=== PATIENT | male | born 1950 | race African-American/Black ===

== ENCOUNTER 2023-01-09 09:45 | Inpatient (IN) | payer OTHER ==
[2023-01-09] MEDS ORDERED: FLU VACC QS2023(65UP)/MF59C/PF 60 MCG/0.5 ML SYRINGE IM ONE (16:15)
[2023-01-09] MEDS ORDERED: Senokot S 8.6-50 MG TAB PO PRN (16:32)
[2023-01-09] MEDS ORDERED: Acetaminophen 325 MG TAB PO PRN (16:32)
[2023-01-09] MEDS ORDERED: Bisacodyl 5 MG TAB PO PRN (16:32)
[2023-01-09] MEDS ORDERED: Ondansetron ODT 4 MG TAB SL PRN (16:32)
[2023-01-09] MEDS ORDERED: Glucagon 1 MG/ML KIT IM PRN (17:05)
[2023-01-09] MEDS ORDERED: Dextrose 50% Abboject 50 ML SYRINGE SLOW IVP PRN (17:05)
[2023-01-09] MEDS ORDERED: HumaLOG 300 UNITS/3 ML VIAL SC PRN ×2 (17:05)
[2023-01-09] MEDS ORDERED: cloNIDine 0.1 MG TAB PO PRN (17:18)
[2023-01-09] MEDS: QUEtiapine 25 MG TAB PO SCH (20:27)
[2023-01-09] MEDS: metFORMIN 500 MG TAB PO SCH (20:27)
[2023-01-09] MEDS: Famotidine 20 MG TAB PO SCH (20:27)
[2023-01-09] MEDS: Donepezil HCl 10 MG TAB PO SCH (20:46)
[2023-01-09] MEDS ORDERED: metFORMIN XR 500 MG ER.TAB PO SCH (21:00)
[2023-01-09] MEDS ORDERED: Apixaban 5 MG TAB PO SCH ×2 (21:00)
[2023-01-10] MEDS: Apixaban 5 MG TAB PO SCH ×2 (09:41→21:03)
[2023-01-10] MEDS: QUEtiapine 25 MG TAB PO SCH ×2 (09:42→21:02)
[2023-01-10] MEDS: Famotidine 20 MG TAB PO SCH ×2 (09:42→21:03)
[2023-01-10] MEDS: Lisinopril 10 MG TAB PO SCH (09:42)
[2023-01-10] MEDS: Empagliflozin 10 MG TAB PO SCH (09:42)
[2023-01-10] MEDS: Amlodipine 5 MG TAB PO SCH (09:43)
[2023-01-10] MEDS: metFORMIN 500 MG TAB PO SCH ×2 (09:43→21:03)
[2023-01-10 09:46] LABS: #Basophils 0.1 thou/uL (0.0-0.2); #Eosinphils 0.3 thou/uL (0.0-0.7); #Lymphocytes 2.1 thou/uL (1.20-3.40); #Monocytes 0.4 thou/uL (0.11-0.59); #Neutrophils 5.2 thou/uL (1.40-6.50); %Basophils 1.4 % (0.0-1.0); %Eosinophils 3.1 % (0.0-10.0); %Monocytes 5.3 % (0.0-10.0); %Neutrophils 64.1 % (42.0-75.0); Hematocrit 57.4 % (42.0-52.0); Hemoglobin 18.7 g/dL (14.0-18.0); Mean Corpuscular HGB CONC 32.6 g/dL (32.0-36.0); Mean Corpuscular Hemoglobin 27.6 pg (27.0-31.0); Mean Corpuscular Volume 84.8 fl (78.0-98.0); Mean Platelet Volume 7.4 fL (7.4-10.4); Platelet Count 302 10x3/uL (130-400); RBC Distribution Width 12.7 % (11.5-14.5); Red Blood Cell (RBC) Count 6.77 mill/uL (4.70-6.10); White Blood Cell (WBC) Count 8.2 10x3/uL (4.8-10.8)
[2023-01-10] MEDS: Atorvastatin Calcium 40 MG TAB PO SCH (09:50)
[2023-01-10 10:01] LABS: ALT (SGPT) 27 U/L (8-55); AST (SGOT) 18 U/L (5-34); Albumin 4.3 g/dL (3.4-4.8); Alkaline Phosphatase 50 U/L (40-110); Anion Gap 16 mmol/L (10-20); BUN (Urea Nitrogen) 15 mg/dL (8.4-25.7); Bilirubin, Total 0.6 mg/dL (0.2-1.2); Calc. Creatinine Clearance 63 mL/min (70-130); Calcium 10.5 mg/dL (7.8-10.44); Carbon Dioxide 23 mmol/L (23-31); Chloride 106 mmol/L (98-107); Estimated GFR 75; Globulin 4.1 g/dL (2.4-3.5); Glucose 102 mg/dL (83-110); Protein, Total 8.4 g/dL (5.8-8.1); Sodium 140 mmol/L (136-145)
[2023-01-10] MEDS: Donepezil HCl 10 MG TAB PO SCH (21:03)
[2023-01-11] MEDS: Empagliflozin 10 MG TAB PO SCH (08:39)
[2023-01-11] MEDS: Famotidine 20 MG TAB PO SCH ×2 (08:40→21:08)
[2023-01-11] MEDS: Apixaban 5 MG TAB PO SCH ×2 (08:40→21:08)
[2023-01-11] MEDS: metFORMIN 500 MG TAB PO SCH ×2 (08:40→21:08)
[2023-01-11] MEDS: Lisinopril 10 MG TAB PO SCH (08:41)
[2023-01-11] MEDS: Amlodipine 5 MG TAB PO SCH (08:41)
[2023-01-11] MEDS: QUEtiapine 25 MG TAB PO SCH ×2 (08:41→21:08)
[2023-01-11] MEDS: Atorvastatin Calcium 40 MG TAB PO SCH (08:42)
[2023-01-11] MEDS: Donepezil HCl 10 MG TAB PO SCH (21:09)
[2023-01-12 06:36] LABS: ALT (SGPT) 21 U/L (8-55); AST (SGOT) 13 U/L (5-34); Albumin 4.1 g/dL (3.4-4.8); Alkaline Phosphatase 48 U/L (40-110); Anion Gap 17 mmol/L (10-20); BUN (Urea Nitrogen) 27 mg/dL (8.4-25.7); Bilirubin, Total 0.6 mg/dL (0.2-1.2); Calc. Creatinine Clearance 55 mL/min (70-130); Calcium 10.3 mg/dL (7.8-10.44); Carbon Dioxide 23 mmol/L (23-31); Chloride 104 mmol/L (98-107); Estimated GFR 63; Globulin 3.7 g/dL (2.4-3.5); Glucose 99 mg/dL (83-110); Potassium 4.6 mmol/L (3.5-5.1); Protein, Total 7.8 g/dL (5.8-8.1); Sodium 139 mmol/L (136-145)
[2023-01-12] MEDS: Lisinopril 10 MG TAB PO SCH ×2 (08:09→11:02)
[2023-01-12] MEDS: Apixaban 5 MG TAB PO SCH ×2 (08:09→19:44)
[2023-01-12] MEDS: metFORMIN 500 MG TAB PO SCH ×2 (08:09→19:44)
[2023-01-12] MEDS: Atorvastatin Calcium 40 MG TAB PO SCH (08:09)
[2023-01-12] MEDS: QUEtiapine 25 MG TAB PO SCH ×2 (08:10→19:44)
[2023-01-12] MEDS: Famotidine 20 MG TAB PO SCH ×2 (08:10→19:44)
[2023-01-12] MEDS: Empagliflozin 10 MG TAB PO SCH (08:10)
[2023-01-12] MEDS ORDERED: Apixaban 5 MG TAB PO SCH (09:00)
[2023-01-12] MEDS: Amlodipine 5 MG TAB PO SCH (11:02)
[2023-01-12] MEDS: Donepezil HCl 10 MG TAB PO SCH (19:44)
[2023-01-13] MEDS: Lisinopril 10 MG TAB PO SCH (09:57)
[2023-01-13] MEDS: Apixaban 5 MG TAB PO SCH ×2 (09:58→20:15)
[2023-01-13] MEDS: Famotidine 20 MG TAB PO SCH ×2 (09:59→20:16)
[2023-01-13] MEDS: Empagliflozin 10 MG TAB PO SCH (09:59)
[2023-01-13] MEDS: metFORMIN 500 MG TAB PO SCH ×2 (09:59→20:15)
[2023-01-13] MEDS: QUEtiapine 25 MG TAB PO SCH ×2 (09:59→20:16)
[2023-01-13] MEDS: Amlodipine 5 MG TAB PO SCH (10:00)
[2023-01-13] MEDS: Atorvastatin Calcium 40 MG TAB PO SCH (10:00)
[2023-01-13] MEDS: Donepezil HCl 10 MG TAB PO SCH (20:15)
[2023-01-14] MEDS: Empagliflozin 10 MG TAB PO SCH (08:35)
[2023-01-14] MEDS: Apixaban 5 MG TAB PO SCH ×2 (08:35→20:30)
[2023-01-14] MEDS: Atorvastatin Calcium 40 MG TAB PO SCH (08:36)
[2023-01-14] MEDS: metFORMIN 500 MG TAB PO SCH ×2 (08:36→20:29)
[2023-01-14] MEDS: Lisinopril 10 MG TAB PO SCH (08:37)
[2023-01-14] MEDS: QUEtiapine 25 MG TAB PO SCH ×2 (08:37→20:29)
[2023-01-14] MEDS: Famotidine 20 MG TAB PO SCH ×2 (08:37→20:29)
[2023-01-14] MEDS: Amlodipine 5 MG TAB PO SCH (08:38)
[2023-01-14] MEDS: Donepezil HCl 10 MG TAB PO SCH (20:30)
[2023-01-15] MEDS: metFORMIN 500 MG TAB PO SCH ×2 (08:23→20:27)
[2023-01-15] MEDS: Famotidine 20 MG TAB PO SCH ×2 (08:24→20:27)
[2023-01-15] MEDS: Atorvastatin Calcium 40 MG TAB PO SCH (08:24)
[2023-01-15] MEDS: Empagliflozin 10 MG TAB PO SCH (08:24)
[2023-01-15] MEDS: Lisinopril 10 MG TAB PO SCH (08:24)
[2023-01-15] MEDS: Apixaban 5 MG TAB PO SCH ×2 (08:24→20:27)
[2023-01-15] MEDS: QUEtiapine 25 MG TAB PO SCH ×2 (08:25→20:27)
[2023-01-15] MEDS: Amlodipine 5 MG TAB PO SCH (08:25)
[2023-01-15] MEDS: Donepezil HCl 10 MG TAB PO SCH (20:27)
[2023-01-16] MEDS: metFORMIN 500 MG TAB PO SCH ×2 (09:09→20:42)
[2023-01-16] MEDS: Famotidine 20 MG TAB PO SCH ×2 (09:09→20:42)
[2023-01-16] MEDS: Atorvastatin Calcium 40 MG TAB PO SCH (09:10)
[2023-01-16] MEDS: Empagliflozin 10 MG TAB PO SCH (09:10)
[2023-01-16] MEDS: Lisinopril 10 MG TAB PO SCH (09:10)
[2023-01-16] MEDS: Apixaban 5 MG TAB PO SCH ×2 (09:10→20:42)
[2023-01-16] MEDS: QUEtiapine 25 MG TAB PO SCH (09:10)
[2023-01-16] MEDS: Amlodipine 5 MG TAB PO SCH (09:11)
[2023-01-16] MEDS: Donepezil HCl 10 MG TAB PO SCH (20:41)
[2023-01-16] MEDS ORDERED: QUEtiapine 25 MG TAB PO SCH (21:00)
[2023-01-16] MEDS: hydrOXYzine 25 MG TAB PO PRN (22:10)
[2023-01-17 06:15] LABS: Anion Gap 18 mmol/L (10-20); BUN (Urea Nitrogen) 30 mg/dL (8.4-25.7); Calc. Creatinine Clearance 65 mL/min (70-130); Calcium 9.7 mg/dL (7.8-10.44); Carbon Dioxide 20 mmol/L (23-31); Chloride 104 mmol/L (98-107); Estimated GFR 82; Glucose 84 mg/dL (83-110); Sodium 137 mmol/L (136-145)
[2023-01-17 06:23] LABS: #Basophils 0.2 thou/uL (0.0-0.2); #Eosinphils 0.2 thou/uL (0.0-0.7); #Lymphocytes 3.7 thou/uL (1.20-3.40); #Monocytes 0.6 thou/uL (0.11-0.59); #Neutrophils 3.6 thou/uL (1.40-6.50); %Basophils 2.1 % (0.0-1.0); %Eosinophils 2.5 % (0.0-10.0); %Lymphocytes 44.6 % (21.0-51.0); %Monocytes 6.9 % (0.0-10.0); %Neutrophils 43.9 % (42.0-75.0); Hematocrit 49.6 % (42.0-52.0); Hemoglobin 16.4 g/dL (14.0-18.0); Mean Corpuscular Hemoglobin 27.9 pg (27.0-31.0); Mean Corpuscular Volume 84.4 fl (78.0-98.0); Platelet Count 196 10x3/uL (130-400); RBC Distribution Width 12.7 % (11.5-14.5); Red Blood Cell (RBC) Count 5.87 mill/uL (4.70-6.10); White Blood Cell (WBC) Count 8.2 10x3/uL (4.8-10.8)
[2023-01-17 06:29] LABS: Potassium 5.4 mmol/L (3.5-5.1)
[2023-01-17] MEDS ORDERED: QUEtiapine 25 MG TAB PO SCH (09:00)
[2023-01-17] MEDS: Atorvastatin Calcium 40 MG TAB PO SCH (09:25)
[2023-01-17] MEDS: Empagliflozin 10 MG TAB PO SCH (09:25)
[2023-01-17] MEDS: metFORMIN 500 MG TAB PO SCH ×2 (09:25→20:09)
[2023-01-17] MEDS: Famotidine 20 MG TAB PO SCH ×2 (09:27→20:10)
[2023-01-17] MEDS: Apixaban 5 MG TAB PO SCH ×2 (09:28→20:09)
[2023-01-17] MEDS: Lisinopril 10 MG TAB PO SCH (09:32)
[2023-01-17] MEDS: Amlodipine 5 MG TAB PO SCH (09:33)
[2023-01-17 09:39] VITALS: BMI 21.6
[2023-01-17] MEDS: QUEtiapine 25 MG TAB PO SCH (20:09)
[2023-01-17] MEDS: Donepezil HCl 10 MG TAB PO SCH (20:10)
[2023-01-17] MEDS: hydrOXYzine 25 MG TAB PO PRN (22:02)
[2023-01-18 06:17] LABS: Anion Gap 14 mmol/L (10-20); BUN (Urea Nitrogen) 26 mg/dL (8.4-25.7); Calc. Creatinine Clearance 65 mL/min (70-130); Calcium 9.8 mg/dL (7.8-10.44); Carbon Dioxide 24 mmol/L (23-31); Chloride 104 mmol/L (98-107); Estimated GFR 79; Glucose 79 mg/dL (83-110); Potassium 4.1 mmol/L (3.5-5.1); Sodium 138 mmol/L (136-145)
[2023-01-18] MEDS: QUEtiapine 25 MG TAB PO SCH ×2 (09:23→20:43)
[2023-01-18] MEDS: Empagliflozin 10 MG TAB PO SCH (09:24)
[2023-01-18] MEDS: metFORMIN 500 MG TAB PO SCH ×2 (09:24→20:42)
[2023-01-18] MEDS: Atorvastatin Calcium 40 MG TAB PO SCH (09:26)
[2023-01-18] MEDS: Apixaban 5 MG TAB PO SCH ×2 (09:26→20:43)
[2023-01-18] MEDS: Famotidine 20 MG TAB PO SCH ×2 (09:26→20:43)
[2023-01-18] MEDS: Amlodipine 5 MG TAB PO SCH (09:27)
[2023-01-18] MEDS: Lisinopril 10 MG TAB PO SCH (09:27)
[2023-01-18] MEDS: hydrOXYzine 25 MG TAB PO PRN (15:47)
[2023-01-18] MEDS: Donepezil HCl 10 MG TAB PO SCH (20:43)
[2023-01-19] MEDS: Atorvastatin Calcium 40 MG TAB PO SCH (08:10)
[2023-01-19] MEDS: Famotidine 20 MG TAB PO SCH ×2 (08:11→19:36)
[2023-01-19] MEDS: Apixaban 5 MG TAB PO SCH ×2 (08:11→19:35)
[2023-01-19] MEDS: metFORMIN 500 MG TAB PO SCH ×2 (08:11→19:35)
[2023-01-19] MEDS: Empagliflozin 10 MG TAB PO SCH (08:12)
[2023-01-19] MEDS: QUEtiapine 25 MG TAB PO SCH ×2 (08:12→19:34)
[2023-01-19] MEDS: Lisinopril 10 MG TAB PO SCH (08:13)
[2023-01-19] MEDS: Amlodipine 5 MG TAB PO SCH (08:14)
[2023-01-19] MEDS: hydrOXYzine 25 MG TAB PO PRN (19:35)
[2023-01-19] MEDS: Donepezil HCl 10 MG TAB PO SCH (19:36)
[2023-01-20] MEDS: QUEtiapine 25 MG TAB PO SCH (08:14)
[2023-01-20] MEDS: Famotidine 20 MG TAB PO SCH (08:14)
[2023-01-20] MEDS: Amlodipine 5 MG TAB PO SCH (08:15)
[2023-01-20] MEDS: Apixaban 5 MG TAB PO SCH (08:15)
[2023-01-20] MEDS: Atorvastatin Calcium 40 MG TAB PO SCH (08:15)
[2023-01-20] MEDS: Empagliflozin 10 MG TAB PO SCH (08:15)
[2023-01-20] MEDS: metFORMIN 500 MG TAB PO SCH (08:19)
[2023-01-20] MEDS: Lisinopril 10 MG TAB PO SCH (08:20)
[2023-01-20 11:26] VITALS: BP 122/75; TEMP 97.4
== END 2023-01-20 12:50 | disposition home or self-care (01) | DRG 948 ==
LOC: NAV ACUTE 14:44
PROVIDERS: ADMIT Family Medicine; ATTEND Family Medicine
DX: R53.81 Other malaise (principal); I69.352 Hemiplegia and hemiparesis following cerebral infarction affecting left dominant side; E11.9 Type 2 diabetes mellitus without complications; E78.5 Hyperlipidemia, unspecified; I10 Essential (primary) hypertension; R53.1 Weakness; G30.9 Alzheimer's disease, unspecified; F02.80 Dementia in other diseases classified elsewhere, unspecified severity, without behavioral disturbance, psychotic disturbance, mood disturbance, and anxiety; Z79.899 Other long term (current) drug therapy
CPT/HCPCS: 36415; 36416; 80048; 80053; 85025; 90471; 90694; G0008

== ENCOUNTER 2024-01-01 14:43 | Emergency (ER) | payer MEDICARE, OTHER ==
[2024-01-01] MEDS ORDERED: Acetaminophen 325 MG TAB ONE (16:06)
[2024-01-01] MEDS ORDERED: Sodium Chloride 0.9% 1,000 ML ONE (16:06)
[2024-01-01 16:08] LABS: ALT (SGPT) 14 U/L (8-55); AST (SGOT) 13 U/L (5-34); Albumin 4.4 g/dL (3.4-4.8); Alkaline Phosphatase 42 U/L (40-110); Anion Gap 21 mmol/L (10-20); BUN (Urea Nitrogen) 33 mg/dL (8.4-25.7); Bilirubin, Total 0.4 mg/dL (0.2-1.2); Calc. Creatinine Clearance 0 mL/min (70-130); Calcium 10.7 mg/dL (7.8-10.44); Carbon Dioxide 20 mmol/L (23-31); Chloride 106 mmol/L (98-107); Estimated GFR 58; Globulin 3.3 g/dL (2.4-3.5); Glucose 121 mg/dL (83-110); Potassium 5.5 mmol/L (3.5-5.1); Protein, Total 7.7 g/dL (5.8-8.1); Sodium 141 mmol/L (136-145)
[2024-01-01 16:09] LABS: Bilirubin Negative (Negative); Blood, Urine Negative (Negative); Clarity Clear (Clear); Glucose, Urine (Dipstick) >=1000 mg/dL (Negative); Ketone, Urine Negative (Negative); Leukocyte Negative (Negative); Nitrite Negative (Negative); Protein, Urine (Dipstick) Negative (Neg-Trace); Specific Gravity, Urine 1.015 (1.005-1.030); Urobilinogen 0.2 mg/dL (Less than 2); pH, Urine 5.5 (5.0-9.0)
[2024-01-01 16:21] LABS: SARS-CoV-2 E Target Negative; SARS-CoV-2 N2 Target Negative; SARS-CoV-2 NAA Rapid Test Not Detected (NotDetected); SARS-CoV-2 RdRP gene Negative
[2024-01-01 16:22] LABS: Bacteria/HPF Rare-Few HPF (None Seen); CAUTI Indications for Culture Fever or rigors; RBC/HPF 0-3 HPF (0-3); Renal Epithelial 0-3 HPF (None Seen); Squamous Epithelial 0-3 HPF (0-3)
[2024-01-01 16:23] LABS: Urine Culture Reflex No No
[2024-01-01 16:35] LABS: Hematocrit 46.5 % (42.0-52.0); Hemoglobin 15.2 g/dL (14.0-18.0); Mean Corpuscular HGB CONC 32.7 g/dL (32.0-36.0); Mean Corpuscular Hemoglobin 27.4 pg (27.0-31.0); Mean Corpuscular Volume 83.7 fl (78.0-98.0); Mean Platelet Volume 7.3 fL (7.4-10.4); Platelet Count 268 10x3/uL (130-400); RBC Distribution Width 12.5 % (11.5-14.5); Red Blood Cell (RBC) Count 5.56 mill/uL (4.70-6.10); White Blood Cell (WBC) Count 8.6 10x3/uL (4.8-10.8)
[2024-01-01] MEDS ORDERED: Cefepime 2 GM VIAL ONE (16:37)
[2024-01-01] MEDS ORDERED: Sodium Chloride 0.9% 100 ML ONE (16:38)
[2024-01-01 16:43] LABS: Eosinophils 2 % (0-10); Lymphocytes 41 % (21-51); Monocytes 7 % (0-10); Neutrophil 49 % (42-75)
[2024-01-01 16:44] LABS: Anisocytosis SLIGHT = 6-15 cells (100X) (0-5/hpf); Hypochromia SLIGHT = 6-15 cells (100X) (0-5/hpf); Poikilocytosis SLIGHT = 6-15 cells (100X) (0-5/hpf)
[2024-01-01 16:45] LABS: Ovalocytes SLIGHT = 2-5 cells (100X) (0-1/hpf); Target Cells SLIGHT = 2-5 cells (100X) (0-1/hpf)
[2024-01-01 16:46] LABS: Platelet Adequacy Comment Appears Adequate; Toxic Granulation SLIGHT
[2024-01-01 16:48] LABS: MDiff Complete? YES
[2024-01-01] MEDS ORDERED: Vancomycin 1 GM VIAL ONE (18:04)
[2024-01-01] MEDS ORDERED: Vancomycin HCl 750 MG VIAL ONE (18:09)
[2024-01-01] MEDS ORDERED: Sodium Chloride 0.9% 250 ML 250 ML ONE (18:09)
== END 2024-01-01 20:33 | disposition short-term general hospital (02) ==
LOC: NAV ERS 14:43
DX: F03.90 Unspecified dementia, unspecified severity, without behavioral disturbance, psychotic disturbance, mood disturbance, and anxiety (principal); R41.0 Disorientation, unspecified; R65.10 Systemic inflammatory response syndrome (SIRS) of non-infectious origin without acute organ dysfunction; R50.9 Fever, unspecified; E86.0 Dehydration; I10 Essential (primary) hypertension; F17.210 Nicotine dependence, cigarettes, uncomplicated; Z79.01 Long term (current) use of anticoagulants
CPT/HCPCS: 36415; 51701; 70450; 71045; 80053; 81001; 83605; 84145; 85025; 87040; 87086; 87804; 96361; 96365; 96375; J0692; J3370; J7030; J7050; U0002